=== PATIENT | female | born 1950 | race Caucasian/White ===

== ENCOUNTER 2016-08-06 16:03 | Emergency (ER) | payer OTHER ==
[2016-08-06] MEDS ORDERED: LORazepam 1 MG TABLET ONE (16:20)
--- NOTE | 2016-08-06 17:42 | ER NURSING DOCUMENTATION ---
Nurse's Notes [facility] Name:Brenna Jose Age:65 yrs Sex:Female :1950 Arrival Date:08/06/2016 Time:16:03 Bed1 Private MD: Diagnosis:Panic Disorder Presentation: 08/06 16:09 Acuity: ELISABETH 3 tg 16:20 Presenting complaint: Patient states: Very anxious and hyperventilating. States there rs are family problems, and she had a similar episode in her MDs office the other days after having four joints injected. Does not take medications for panic, but now would like to have something. Accompanied by her spouse. Transition of care: Home. 16:20 Method Of Arrival: Private Vehicle rs Triage Assessment: 16:05 General: Appears distressed, well developed, well nourished, well groomed, Behavior is rs anxious, cooperative, pleasant. Neuro: No deficits noted. Level of Consciousness is awake, alert, Oriented to person, place, time, event. Cardiovascular: No deficits noted. Capillary refill < 3 seconds Pulses are 3+ in left radial artery. Respiratory: Airway is patent Respiratory effort is even, unlabored, Respiratory pattern is hyperventilation Breath sounds are clear bilaterally. the patient has moderate shortness of breath. Derm: No deficits noted. Skin is pink, warm & dry. Historical: - Allergies: No known drug Allergies; Cephalexin; Codeine; Hydrocodone (antituss); Meperidine; Ondansetron HCl; Phenergan; Tetracycline; - Home Meds: 1. Excedrin Extra Strength 250-250-65 mg oral tab 2. aspirin 81 mg oral tab 3. chlorpheniramine maleate 4 mg oral cap - PMHx: OSTEOARTHRITIS; Bursitis; lumbar back pain; Bilat hip pain, bursitis; GERD; Venous stasis; Venous stasis dermatitis; Dry eys, bilat; Hyperlipidemia; OBESITY; HYPOGLYCEMIA; - PSHx: None; shoulder arthroscopy; HERNIA REPAIR; Oral surgery, removal of all teeth; Heel tendon spur surgery; Gastric bypass; HYSTERECTOMY; Ovarian cyst; APPENDECTOMY; Tonsils and adenoids; Cataract surgery; - Tetanus: < 10 years. - Ebola Screening: : Patient negative for fever greater than or equal to 101.5 degrees Fahrenheit, and additional compatible Ebola Virus Disease symptoms. Patient denies exposure to infectious person. Patient denies travel to an Ebola-affected area in the 21 days before illness onset. No symptoms or risks identified at this time. . - Immunization history: Unable to Obtain. - Social history: Smoking status: Patient states was never smoker of tobacco. Patient/guardian denies using alcohol. Screenin:50 Infectious Disease Risk None. Abuse screen: Denies threats or abuse. Nutritional rs screening: No deficits noted. Assessment: 16:49 Reassessment: Patient states feeling better. Patient states symptoms have improved. rs Patient appears in no apparent distress at this time. Vital Signs: 16:15 BP 175 / 85; Pulse 96; Resp 44; Pulse Ox 100% on R/A; rs 17:33 BP 151 / 67; Pulse 69; Resp 20; Temp 97; Pulse Ox 94% on R/A; Pain 0/10; rs ED Course: 16:05 Patient arrived in ED. cj 16:05 Notified ED Physician of patient's arrival and chief complaint. Dr. Hankins notified. Arm rs band placed on Bed in low position Call Light in Reach Gowned HOB Elevated Side rails up x1. Family accompanied patient. 16:09 Triage completed. tg 16:11 Johann Hankins MD is Attending Physician. sc 16:20 Elysia Faith, GABRIELLE is Primary Nurse. rs 16:20 Door closed. Noise minimized. Lights dimmed. Verbal reassurance given. Warm blanket rs given. 16:50 Pulse Ox - RN Monitoring Only. rs 16:52 Diet: Patient given regular meal. States she has not eaten today. . rs 16:53 Eating lunch and feels better. Tray for her spouse also due too him being diabetic. rs 16:57 Bev Go DO is Referral Physician. sc 17:40 Valuables Remains with patient. rs Administered Medications: 16:12 Drug: Ativan 1 mg; Route: PO; rs 17:11 Follow up: Response: No adverse reaction; Anxiety decreased rs Point of Care Testing: Blood Glucose: 16:47 Blood Glucose: 64 mg/dL; rs Ranges: Outcome: 17:02 Discharge ordered by . sc 17:36 Discharged to home ambulatory. rs 17:36 Condition: improved 17:36 Discharge instructions given to patient, family, Instructed on discharge instructions, follow up and referral plans. medication usage, Demonstrated understanding of instructions, medications, Prescriptions given X 1. 17:41 Patient left the ED. rs 08/08 15:37 Discharge F/U Call: Unable to reach: left voicemail: tg Signatures: Bobby Chand RN RN tg Stalker, Rachael, RN RN rs Chew, Scott, MD MD sc Jones, Loni german
--- NOTE | 2016-08-06 17:42 | ER PHYSICIAN DOCUMENTATION ---
Physician Documentation [facility] Name:Brenna Jose Age:65 yrs Sex:Female :1950 Arrival Date:08/06/2016 Time:16:03 Bed1 Private MD: Johann Perez Disposition: 08/06/16 17:02 Discharged to Home/Self Care. Impression: Panic Disorder. - Condition is Good. - Discharge Instructions: PANIC ATTACK. - Prescriptions for Xanax 0.5 mg Oral Tablet - take 1 tablet by ORAL route every 8 hours As needed; 20 tablet. - Medical Reconciliation form form. - Follow up: Bev Go DO; When: As needed; Reason: Worsening of condition. - Problem is new. - Symptoms are resolved. HPI: 08/06 16:34 This 65 yrs old Female presents to ER via Private Vehicle with complaints of sc Anxiety, Chest Pain. 16:34 The patient presents to the emergency department with anxiety, family problems. Onset: sc The symptom(s)/episode began/occurred today. Past psychiatric history: occas panic attacks. Associated signs and symptoms: Pertinent positives; anxiety, chest pain, shortness of breath, paresthesias. Severity of symptoms: At their worst the symptoms were severe. The patient has experienced similar episodes in the past, a few times. Historical: - Allergies: No known drug Allergies; Cephalexin; Codeine; Hydrocodone (antituss); Meperidine; Ondansetron HCl; Phenergan; Tetracycline; - Home Meds: 1. Excedrin Extra Strength 250-250-65 mg oral tab 2. aspirin 81 mg oral tab 3. chlorpheniramine maleate 4 mg oral cap - PMHx: OSTEOARTHRITIS; Bursitis; lumbar back pain; Bilat hip pain, bursitis; GERD; Venous stasis; Venous stasis dermatitis; Dry eys, bilat; Hyperlipidemia; OBESITY; HYPOGLYCEMIA; - PSHx: None; shoulder arthroscopy; HERNIA REPAIR; Oral surgery, removal of all teeth; Heel tendon spur surgery; Gastric bypass; HYSTERECTOMY; Ovarian cyst; APPENDECTOMY; Tonsils and adenoids; Cataract surgery; - Tetanus: < 10 years. - Ebola Screening: : Patient negative for fever greater than or equal to 101.5 degrees Fahrenheit, and additional compatible Ebola Virus Disease symptoms. Patient denies exposure to infectious person. Patient denies travel to an Ebola-affected area in the 21 days before illness onset. No symptoms or risks identified at this time. . - Immunization history: Unable to Obtain. - Social history: Smoking status: Patient states was never smoker of tobacco. Patient/guardian denies using alcohol. ROS: 16:37 Constitutional: Negative for fever, chills, and weight loss. sc Eyes: Negative for injury, pain, redness, and discharge. ENT: Negative for injury, pain, and discharge. Neck: Negative for injury, pain, and swelling. Abdomen/GI: Negative for abdominal pain, nausea, vomiting, diarrhea, and constipation. Back: Negative for injury and pain. MS/Extremity: Negative for injury and deformity. 16:37 Skin: Negative for injury, rash, and discoloration. sc 16:37 Cardiovascular: Positive for chest pain. 16:37 Respiratory: Positive for shortness of breath. 16:37 Psych: Positive for anxiety. Exam: Head/Face: Normocephalic, atraumatic. Eyes: Pupils equal round and reactive to light, extra-ocular motions intact. Lids and lashes normal. Conjunctiva and sclera are non-icteric and not injected. Cornea within normal limits. Periorbital areas with no swelling, redness, or edema. ENT: Nares patent. No nasal discharge, no septal abnormalities noted. Tympanic membranes are normal and external auditory canals are clear. Oropharynx with no redness, swelling, or masses, exudates, or evidence of obstruction, uvula midline. Mucous membranes moist. Neck: Trachea midline, no thyromegaly or masses palpated, and no cervical lymphadenopathy. Supple, full range of motion without nuchal rigidity, or vertebral point tenderness. No meningismus. Chest/axilla: Normal chest wall appearance and motion. Nontender with no deformity. No lesions are appreciated. Cardiovascular: Regular rate and rhythm with a normal S1 and S2. No gallops, murmurs, or rubs. Normal PMI, no JVD. No pulse deficits. Respiratory: Lungs have equal breath sounds bilaterally, clear to auscultation and percussion. No rales, rhonchi or wheezes noted. No increased work of breathing, no retractions or nasal flaring. Abdomen/GI: Soft, non-tender, with normal bowel sounds. No distension or tympany. No guarding or rebound. No evidence of tenderness throughout. Back: No spinal tenderness. No costovertebral tenderness. Full range of motion. Skin: Warm, dry with normal turgor. Normal color with no rashes, no lesions, and no evidence of cellulitis. MS/ Extremity: Pulses equal, no cyanosis. Neurovascular intact. Full, normal range of motion, negative Homans's, calves equal bilaterally. 16:38 Neuro: Awake and alert, GCS 15, oriented to person, place, time, and situation. sc Cranial nerves II-XII grossly intact. Motor strength 5/5 in all extremities. Sensory grossly intact. Cerebellar exam normal. Normal gait. 16:38 Constitutional: The patient appears alert, awake, anxious, in obvious distress, moderately distressed. Vital Signs: 16:15 BP 175 / 85; Pulse 96; Resp 44; Pulse Ox 100% on R/A; rs 17:33 BP 151 / 67; Pulse 69; Resp 20; Temp 97; Pulse Ox 94% on R/A; Pain 0/10; rs MDM: 16:11 Patient medically screened. sc 16:38 Differential diagnosis: panic attack, doubt cardio pulm cause of sxs, immediate sc improvement with breathing coaching and ativan. Data reviewed: vital signs, nurses notes, old medical records, and as a result, I will continue to observe the patient. Dispensed Medications: 16:12 Drug: Ativan 1 mg; Route: PO; rs 17:11 Follow up: Response: No adverse reaction; Anxiety decreased rs Point of Care Testing: Blood Glucose: 16:47 Blood Glucose: 64 mg/dL; rs Ranges: Critical Glucose Levels:Adult <50 mg/dl or >400 mg/dl <40 mg/dl or >180 mg/dl Signatures: Elysia Faith RN RN rs Johann Hankins MD MD la
== END 2016-08-06 17:42 | disposition home or self-care (01) ==
LOC: ER 16:03
DX: F41.0 Panic disorder [episodic paroxysmal anxiety] (principal); R07.9 Chest pain, unspecified; R06.02 Shortness of breath; Z79.899 Other long term (current) drug therapy
CPT/HCPCS: 99283